=== PATIENT | female | born 1965 | race American Indian/Alaskan Native ===

== ENCOUNTER 2021-01-16 10:54 | Emergency (ER) | payer OTHER ==
[2021-01-16 11:02] VITALS: BP 140/79
[2021-01-16] MEDS ORDERED: KETOROLAC 30 MG/1 ML INJ IM ONE (11:25)
[2021-01-16] MEDS ORDERED: CYCLOBENZAPRINE 10 MG TAB PO ONE (11:25)
--- NOTE | 2021-01-16 11:36 | Emergency Department Report ---
ED Extremity Problem HPI - General Chief complaint: Extremity Injury, Lower Stated complaint: LEFT LEG PAIN Time Seen by Provider: 01/16/21 11:24 Source: patient Mode of arrival: Wheelchair Limitations: No Limitations - History of Present Illness Initial comments: The patient was evaluated in the emergency department for symptoms described in the history of present illness. He/she was evaluated in the context of the global COVID-19 pandemic, which necessitated consideration that the patient might be at risk for infection with the virus that causes COVID-19. Institutional protocols and algorithms that pertain to the evaluation of patients at risk for COVID-19 are in a state of rapid change based on information released by regulatory bodies including the CDC and federal and state organizations. These policies and algorithms were followed during the patient's care in the emergency department. Please note that these policies, procedures and recommendations changed on a rapid basis. 55-year-old -[place] female presents to the emergency room for left upper thigh pain started yesterday. Patient states that she has been moving fur niture when she started getting pain in her left thigh. Patient states that she is taking nothing for pain but use ice and heat. Patient denies any falls. She reports she does have a primary care provider at [facility]. She denies any known drug allergies. MD Complaint: extremity pain Location: left, lower extremity History of Same: No (Thigh) -: Yes myalgia Severity scale (0 -10): 10 Quality: stabbing, aching, sharp Consistency: constant Improves with: nothing Worsens with: weight bearing, walking, palpation Associated Symptoms: shortness of breath - Related Data Previous Rx's Medication Instructions Recorded Last Taken Type Ibuprofen [Motrin 800 MG tab] 800 mg PO Q8HR PRN #21 tablet 01/16/21 Unknown Rx Allergies Allergy/AdvReac Type Severity Reaction Status Date / Time No Known Allergies Allergy Verified 01/16/21 10:58 ED Review of Systems ROS: Stated complaint: LEFT LEG PAIN Other details as noted in HPI Comment: All other systems reviewed and negative ED Past Medical Hx - Past Medical History Previous Medical History?: No - Surgical History Past Surgical History?: No - Medications Home Medications: Home Medications Medication Instructions Recorded Confirmed Last Taken Type Ibuprofen [Motrin 800 MG tab] 800 mg PO Q8HR PRN #21 tablet 01/16/21 Unknown Rx ED Physical Exam - General Limitations: No Limitations General appearance: alert, in distress (Secondary to left leg pain), other - Head Head exam: Present: atraumatic, normocephalic - Eye Eye exam: Present: normal appearance - ENT ENT exam: Present: normal exam, mucous membranes moist, normal external ear exam - Neck Neck exam: Present: normal inspection - Respiratory Respiratory exam: Present: normal lung sounds bilaterally. Absent: respiratory distress, chest wall tenderness, accessory muscle use - Cardiovascular Cardiovascular Exam: Present: normal rhythm, bradycardia. Absent: systolic murmur, diastolic murmur, rubs, gallop - GI/Abdominal GI/Abdominal exam: Present: soft, normal bowel sounds, hernia - Extremities Exam Extremities exam: Present: normal inspection - Back Exam Back exam: Present: normal inspection - Neurological Exam Neurological exam: Present: alert, oriented X3 - Psychiatric Psychiatric exam: Present: normal affect, normal mood - Skin Skin exam: Present: warm, dry, intact, normal color. Absent: rash ED Course Vital Signs 01/16/21 01/16/21 01/16/21 10:58 11:37 12:44 Temperature 98.1 F 98.5 F Pulse Rate 91 H 87 Respiratory 16 19 18 Rate Blood Pressure 140/79 [Left] O2 Sat by Pulse 100 97 Oximetry ED Medical Decision Making - Radiology Data Radiology results: report reviewed Study Comments [facility] [address] [place] [address] Vascular Lab Report Signed Patient: NOLAN LUCIA MR#: [id number] : 1965 Acct:[id number] Age/Sex: 55 / F ADM Date: 01/16/21 Loc: ED Attending Dr: Ordering Physician: KATIE FELICIANO Date of Service: 01/16/21 Procedure(s): VL venous duplex LE LT Accession Number(s): [id number] cc: KATIE FELICIANO DUPLEX DOPPLER LOWER EXTREMITY VEINS, LEFT INDICATION: Left groin thigh pain. TECHNIQUE: Duplex doppler imaging was performed through the veins of the left lower extremity using venous compression and other maneuvers. The exam was technically difficult due to body habitus. COMPARISON: None available. FINDINGS: Common femoral vein: Negative. Superficial femoral vein: Negative. Popliteal vein: Negative. Calf veins: Negative. Additional findings: None. IMPRESSION: Negative for DVT left lower extremity. Signer Name: Thierry Renner MD Signed: 01/16/2021 1:47 PM Workstation Name: [id number] Transcribed By: ES Dictated By: Thierry Renner MD Electronically Authenticated By: Thierry Renner MD Signed Date/Time: 01/16/211346 DD/ 45 TD/TT: - Medical Decision Making 55-year-old -[place] female presents to the emergency room for left upper thigh pain started yesterday. Patient states that she has been moving furniture when she started getting pain in her left thigh. Patient states that she is taking nothing for pain but use ice and heat. Patient denies any falls. She reports she does have a primary care provider at [facility]. She denies any known drug allergies. Toradol injection Flexeril and ultrasound of left lower extremity Patient is also given morphine as she states she was in too much pain to have them do an ultrasound. Ultrasounds negative for any DVT. Patient be discharged home to follow-up with her primary care provider. Critical care attestation.: If time is entered above; I have spent that time in minutes in the direct care of this critically ill patient, excluding procedure time. ED Disposition Clinical Impression: Strain of left hip and thigh, Severely overweight Disposition: 01 HOME / SELF CARE / HOMELESS Is pt being admited?: No Does the pt Need Aspirin: No Condition: Stable Instructions: Muscle Strain, [id number] Additional Instructions: Ultrasounds negative for any DVT/blood clot. I recommend ibuprofen for or Tylenol for pain. Follow-up with your primary care provider. Prescriptions: Ibuprofen [Motrin 800 MG tab] 800 mg PO Q8HR PRN #21 tablet PRN Reason: Pain , Severe (7-10) Forms: Work/School Release Form(ED)
[2021-01-16] MEDS ORDERED: MORPHINE 4 MG/1 ML INJ IM ONE (12:34)
--- NOTE | 2021-01-16 13:51 | Vascular Lab Report ---
DUPLEX DOPPLER LOWER EXTREMITY VEINS, LEFT INDICATION: Left groin thigh pain. TECHNIQUE: Duplex doppler imaging was performed through the veins of the left lower extremity using venous compr ession and other maneuvers. The exam was technically difficult due to body habitus. COMPARISON: None available. FINDINGS: Common femoral vein: Negative. Superficial femoral vein: Negative. Popliteal vein: Negative. Calf veins: Negative. Additional findings: None. IMPRESSION: Negative for DVT left lower extremity. Signer Name: Thierry Renner MD Signed: 01/16/2021 1:47 PM Workstation Name: [id number]
== END 2021-01-16 14:36 | disposition home or self-care (01) ==
LOC: ED 10:54
DX: S76.912A Strain of unspecified muscles, fascia and tendons at thigh level, left thigh, initial encounter (principal); S76.012A Strain of muscle, fascia and tendon of left hip, initial encounter; E66.01 Morbid (severe) obesity due to excess calories; X50.0XXA Overexertion from strenuous movement or load, initial encounter; Y93.89 Activity, other specified; Y92.89 Other specified places as the place of occurrence of the external cause; Y99.8 Other external cause status
CPT/HCPCS: 93971; 96372; 99283; J1885; J2270